=== PATIENT | male | born 1975 | race Caucasian/White ===

== ENCOUNTER 2017-08-30 19:15 | Emergency (ER) | payer OTHER ==
[~2017-08-30] VITALS: Ht 188 cm; Wt 111.1 kg
[~2017-08-30 19:15] MED LIST: ACETAMINOPHEN-1 EAC1 PO; AMOXICILLIN 50500 MG PO; AUGMENTIN 875875 MG PO; BACTRIM DS TAB1 EACH PO; CEPHALEXIN 500500 M3 PO; HYDROCODONE-AP1 EAC6 PO; IBUPROFEN 200200 M1 PO; IBUPROFEN 800800 M1 PO; KEFLEX500 MG PO; LEVAQUIN 500 M500 M2 PO; MEDROLDOSEPACK PO; NAPROSYN500 MG PO; NORCO 5-325 TA1 EAC1 PO; NORCO 5-325 TA1 EACH PO; PROAIR HFA8.5 GM INH; TESSALON PERLE100 MG PO; VENTOLIN HFA 1818 GM INH
[2017-08-30 20:16] LABS: ABSOLUTE EOSINOPHILS 0.1 thou/uL (0.0-0.7); ABSOLUTE LYMPHOCYTES 2.2 thou/uL (0.8-5.3); ABSOLUTE MONOCYTES 0.8 thou/uL (0.0-1.2); ABSOLUTE NEUTROPHILS 8.9 thou/uL (1.6-8.1); BASOPHILS 0.3 %; EOSINOPHILS 0.5 %; HEMATOCRIT 43.6 % (42.0-52.0); HEMOGLOBIN 14.8 gm/dL (14.0-18.0); LYMPHOCYTES 18.7 %; MCH 31.9 pg (26.0-34.0); MCHC 33.9 g/dL (28.0-37.0); MCV 93.8 fL (80.0-100.0); MONOCYTES 6.9 %; MPV 9.6 fl. (7.2-11.1); NUCLEATED RBCS 0 /100WBC; PLATELET COUNT* 179 thou/uL (150-400); POLYS 73.6 %; RBC 4.65 mil/uL (4.50-6.00); RDW-CV 13.4 % (10.5-14.5)
[2017-08-30 20:25] LABS: ANION GAP 6 mmol/L (7-16); BUN 13 mg/dL (7-18); CALCIUM 8.7 mg/dL (8.5-10.1); CHLORIDE 103 mmol/L (98-107); CO2 30 mmol/L (21-32); CREATININE 1.2 mg/dL (0.6-1.3); GLUCOSE 95 mg/dL (70-99); SODIUM 139 mmol/L (136-145)
[2017-08-30 20:26] LABS: URINE BILIRUBIN NEGATIVE (Negative); URINE BLOOD TRACE (Negative); URINE CLARITY CLEAR; URINE COLOR YELLOW; URINE GLUCOSE-RANDOM NEGATIVE (Negative); URINE KETONES NEGATIVE (Negative); URINE LEUKOCYTES-REFLEX NEGATIVE (Negative); URINE NITRITE-REFLEX NEGATIVE (Negative); URINE PROTEIN NEGATIVE (Negative); URINE SPECIFIC GRAVITY 1.015 (1.005-1.030); URINE UROBILINOGEN 0.2 E.U./dl (0.2-1.0)
[2017-08-30 20:32] LABS: ALBUMIN 3.7 g/dL (3.4-5.0); ALKALINE PHOSPHATASE 92 U/L (46-116); LIPASE 141 U/L (73-393); SGOT 14 U/L (15-37); SGPT 31 U/L (30-65); TOTAL BILIRUBIN 0.4 mg/dL (<0.1-1.0); TOTAL PROTEIN 7.4 g/dL (6.4-8.2); TROPONIN-I LEVEL <0.06 ng/mL (<0.06)
[2017-08-30] MEDS ORDERED: PERCOCET 5-3251 EACH PO (21:43)
[2017-08-30] MEDS ORDERED: CIPROFLOXACIN500 M1 PO (21:43)
[2017-08-30] MEDS ORDERED: FLAGYL500 MG PO (21:43)
[2017-08-30 21:51] VITALS: BP 143/78
--- NOTE | 2017-09-01 12:38 | EKG ---
[place] [address] ELECTROCARDIOGRAM REPORT Name: SIENNASYDNI Oakes Room: [facility]#: [id number] Admission: 08/30/17 Attend Phys: Discharge: 08/30/17 Date of : 75 Report #: [id number] THIS REPORT FOR: //name// [facility] ED Test Date: 2017-08-30 Test Time: 20:02:53 Pat Name: SYDNI EL Department: Room: Gender: M Customer Service Operator: FEMI Mcduffie : 1975 Requested By: Manpreet Campos Order Number: [id number] MD: Tre Avila Measurements Intervals [place] Rate: 69 P: 56 OR: 125 QRS: 31 QRSD: 101 T: 52 QT: 374 QTc: 401 Interpretive Statements Sinus arrhythmia Baseline wander in lead(s) III,aVF No previous ECG available for comparison Electronically Signed On 09-01-2017 12:37:57 LATENT FINGERPRINT EXAMINER by Tre Avila [email or web address] <ELECTRONICALLY SIGNED> By: Tre Avila MD, [facility] 09/01/17 1237 [facility] 01 Tre Avila MD, FACC /EPI
== END 2017-08-30 21:52 | disposition home or self-care (01) ==
LOC: M.ERS 19:15
PROVIDERS: Family Medicine
DX: K57.92 Diverticulitis of intestine, part unspecified, without perforation or abscess without bleeding (principal); F17.210 Nicotine dependence, cigarettes, uncomplicated

== ENCOUNTER 2017-12-24 20:23 | Emergency (ER) | payer OTHER ==
[~2017-12-24] VITALS: Ht 190.5 cm; Wt 108.9 kg
[~2017-12-24 20:23] MED LIST changes: +CIPROFLOXACIN500 M1 PO; +FLAGYL500 MG PO; +PERCOCET 5-3251 EACH PO
[2017-12-24 21:04] LABS: ABSOLUTE BASOPHILS 0.1 thou/uL (0.0-0.2); ABSOLUTE EOSINOPHILS 0.3 thou/uL (0.0-0.7); ABSOLUTE MONOCYTES 0.7 thou/uL (0.0-1.2); ABSOLUTE NEUTROPHILS 6.7 thou/uL (1.6-8.1); BASOPHILS 1.2 %; EOSINOPHILS 3.5 %; HEMATOCRIT 43.8 % (42.0-52.0); HEMOGLOBIN 14.8 gm/dL (14.0-18.0); LYMPHOCYTES 19.9 %; MCH 31.8 pg (26.0-34.0); MCHC 33.8 g/dL (28.0-37.0); MCV 94.2 fL (80.0-100.0); MONOCYTES 6.9 %; MPV 9.3 fl. (7.2-11.1); NUCLEATED RBCS 0 /100WBC; PLATELET COUNT* 212 thou/uL (150-400); POLYS 68.5 %; RBC 4.65 mil/uL (4.50-6.00); RDW-CV 13.9 % (10.5-14.5); WBC 9.9 thou/uL (4.0-11.0)
[2017-12-24 21:18] LABS: CALCIUM 8.9 mg/dL (8.5-10.1); CREATININE 1.3 mg/dL (0.6-1.3)
[2017-12-24 21:23] LABS: ALBUMIN 3.6 g/dL (3.4-5.0); TOTAL BILIRUBIN 0.2 mg/dL (<0.1-1.0); TOTAL PROTEIN 7.1 g/dL (6.4-8.2)
[2017-12-24] MEDS ORDERED: IBUPROFEN 800800 MG PO (21:38)
[2017-12-24] MEDS ORDERED: NORCO 5-325 TA1 EACH PO (21:48)
[2017-12-24 21:54] VITALS: BP 119/82
== END 2017-12-24 21:55 | disposition home or self-care (01) ==
LOC: M.ERS 20:23
PROVIDERS: Physician Assistant
DX: M25.561 Pain in right knee (principal); G47.30 Sleep apnea, unspecified; F17.210 Nicotine dependence, cigarettes, uncomplicated